=== PATIENT | male | born 1995 | race Caucasian/White ===

== ENCOUNTER 2020-03-10 02:23 | Emergency (ER) | payer SELFPAY ==
[~2020-03-10] VITALS: Ht 185.4 cm; Wt 74.8 kg
[2020-03-10 02:25] VITALS: BP 137/86
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
--- NOTE | 2020-03-10 02:43 | NUR ---
ED Nurse Note: pt refused CT scans. ERMD notified and spoke with pt further. Pt maintained refusal.
[2020-03-10 02:50] VITALS: BP 135/84
--- NOTE | 2020-03-10 02:50 | NUR ---
ER DISCHARGE NOTE: Patient is cleared to be discharged home per ERMD, pt is aox4, 96% on room air, with stable vital signs. pt was given dc instructions, pt was able to verbalize understanding, pt id band removed. pt is able to ambulate with steady gait. pt belongings taken with [employer] officers.
== END 2020-03-10 02:55 ==
LOC: EMR 02:51
DX: S00.83XA Contusion of other part of head, initial encounter (principal); S00.31XA Abrasion of nose, initial encounter; S80.211A Abrasion, right knee, initial encounter; Y04.8XXA Assault by other bodily force, initial encounter; Y92.9 Unspecified place or not applicable
CPT/HCPCS: 99281